=== PATIENT | male | born 1965 | race Caucasian/White ===

== ENCOUNTER 2020-11-16 22:31 | Inpatient (IN) | payer OTHER ==
[2020-11-16] MEDS ORDERED: SODIUM CHLORIDE 1,000 ML ONE (22:53)
[2020-11-16] MEDS ORDERED: METOCLOPRAMIDE HCL INJECTION 10 MG/2 ML VIAL IVPUSH ONE (22:53)
[2020-11-16] MEDS ORDERED: ONDANSETRON 4 MG/2 ML VIAL IVPB ONE (22:53)
[2020-11-16 22:56] VITALS: BMI 26.9
[2020-11-16 23:26] LABS: BASO % 0.3 % (0-2.0); EOS % 0.1 % (0-4.5); HEMATOCRIT 27.5 % (35.4-49); HEMOGLOBIN 9.6 GM/dl (11.7-16.9); LYMPH % 5.7 % (8-40); MCH 30.2 pg (25.7-33.7); MCHC 34.8 g/dl (32.0-35.9); MONO % 4.9 % (3.8-10.2); PLATELET COUNT 413 10^3/uL (134-434); RBC 3.17 M/mm3 (4.00-5.60); WHITE BLOOD COUNT 14.8 K/mm3 (4.0-10.8)
[2020-11-16] MEDS ORDERED: SODIUM CHLORIDE 1,000 ML IV ONE (23:33)
[2020-11-16 23:38] LABS: ALBUMIN 3.2 g/dl (3.4-5.0); BILIRUBIN,TOTAL 0.5 mg/dl (0.2-1); CALCIUM 8.2 mg/dl (8.5-10); CREATININE 1.3 mg/dl (0.55-1.3); TOT PROT 5.9 g/dl (6.4-8.2)
[2020-11-16] MEDS ORDERED: ONDANSETRON 4 MG/2 ML VIAL ONE (23:44)
[2020-11-16] MEDS ORDERED: METOCLOPRAMIDE HCL INJECTION 10 MG/2 ML VIAL ONE (23:44)
[2020-11-17] MEDS ORDERED: PANTOPRAZOLE SODIUM 40 MG VIAL IVPUSH ONE (00:54)
[2020-11-17] MEDS ORDERED: PANTOPRAZOLE SODIUM 40 MG VIAL ONE (00:57)
[2020-11-17] MEDS: SODIUM CHLORIDE 1,000 ML IV SCH ×3 (06:30→22:30)
[2020-11-17 08:10] LABS: BASO % 0.1 % (0-2.0); EOS % 0.2 % (0-4.5); HEMATOCRIT 22.7 % (35.4-49); HEMOGLOBIN 7.7 GM/dl (11.7-16.9); LYMPH % 8.7 % (8-40); MCH 29.6 pg (25.7-33.7); MCHC 33.9 g/dl (32.0-35.9); MEAN CELL VOLUME 87.1 fl (80-96); MEAN PLT VOLUME 7.1 fl (7.5-11.1); MONO % 7.6 % (3.8-10.2); NEUT % 83.4 % (42.8-82.8); PLATELET COUNT 284 10^3/uL (134-434); RBC 2.61 M/mm3 (4.00-5.60); RDW 12.8 % (11.9-15.9); WHITE BLOOD COUNT 12.1 K/mm3 (4.0-10.8)
[2020-11-17 08:38] LABS: ALBUMIN 2.7 g/dl (3.4-5.0); BILIRUBIN,TOTAL 0.4 mg/dl (0.2-1); CALCIUM 7.9 mg/dl (8.5-10); CREATININE 0.8 mg/dl (0.55-1.3)
[2020-11-17] MEDS ORDERED: LISINOPRIL 20 MG TABLET PO SCH (10:00)
[2020-11-17] MEDS ORDERED: amLODIPine BESYLATE 10 MG TABLET (FP) PO SCH (10:00)
[2020-11-17] MEDS ORDERED: BENZTROPINE MESYLATE 1 MG TABLET PO SCH (10:00)
[2020-11-17] MEDS ORDERED: PANTOPRAZOLE SODIUM 40 MG VIAL IVPUSH SCH ×2 (10:00→22:00)
[2020-11-17] MEDS ORDERED: PATIENT'S OWN MEDICATION (NON-FORMULARY) (Lisinopril/Hydrochlorothiazide [Lisinopril-Hctz PO SCH (10:00)
[2020-11-17] MEDS ORDERED: HYDROCHLOROTHIAZIDE 12.5 MG CAPSULE (FP) PO SCH (10:00)
[2020-11-17] MEDS ORDERED: PROPOFOL 20 ML ONE (10:12)
[2020-11-17] MEDS ORDERED: LIDOCAINE HCL/PF 2% SDV 5ML VIAL ONE (10:12)
[2020-11-17] MEDS ORDERED: BENZTROPINE MESYLATE 0.5 MG TABLET (FP) PO SCH (11:01)
[2020-11-17 14:11] LABS: HEMATOCRIT 22.4 % (35.4-49); HEMOGLOBIN 7.7 GM/dl (11.7-16.9); MCH 29.8 pg (25.7-33.7); MCHC 34.5 g/dl (32.0-35.9); MEAN CELL VOLUME 86.4 fl (80-96); MEAN PLT VOLUME 6.4 fl (7.5-11.1); PLATELET COUNT 298 10^3/uL (134-434); RBC 2.59 M/mm3 (4.00-5.60); RDW 13.3 % (11.9-15.9)
[2020-11-17 14:30] LABS: CALCIUM 7.7 mg/dl (8.5-10); CREATININE 0.7 mg/dl (0.55-1.3)
[2020-11-17] MEDS ORDERED: DIVALPROEX SODIUM 500 MG TABLET E.C. PO SCH (22:00)
[2020-11-17] MEDS ORDERED: cloZAPine 25 MG TABLET PO SCH (22:00)
[2020-11-17] MEDS: DIVALPROEX SODIUM 500 MG TABLET E.C. PO SCH (22:30)
[2020-11-17] MEDS: PANTOPRAZOLE SODIUM 40 MG VIAL IVPUSH SCH (22:30)
[2020-11-17] MEDS: BENZTROPINE MESYLATE 1 MG TABLET PO SCH (22:30)
[2020-11-17] MEDS: cloZAPine 25 MG TABLET PO SCH (22:31)
[2020-11-18] MEDS ORDERED: PT OWN MED DRAWER 7, Y5N ONE ×4 (09:31→21:44)
[2020-11-18] MEDS ORDERED: ACETAMINOPHEN 500 MG TABLET (FP) PO PRN (09:33)
[2020-11-18] MEDS: amLODIPine BESYLATE 10 MG TABLET (FP) PO SCH (09:37)
[2020-11-18] MEDS: LISINOPRIL 20 MG TABLET PO SCH (09:37)
[2020-11-18] MEDS: HYDROCHLOROTHIAZIDE 12.5 MG CAPSULE (FP) PO SCH (09:37)
[2020-11-18] MEDS: PANTOPRAZOLE SODIUM 40 MG VIAL IVPUSH SCH (09:37)
[2020-11-18] MEDS: BENZTROPINE MESYLATE 1 MG TABLET PO SCH ×2 (09:38→22:03)
[2020-11-18] MEDS ORDERED: ACETAMINOPHEN 1000 MG/100 ML VIAL (NON FORMULARY) IVPB PRN (09:41)
[2020-11-18 09:50] LABS: BASO % 0.6 % (0-2.0); EOS % 0.7 % (0-4.5); HEMATOCRIT 26.5 % (35.4-49); HEMOGLOBIN 9.4 GM/dL (11.7-16.9); LYMPH % 14.3 % (8-40); MCH 29.7 pg (25.7-33.7); MCHC 35.5 g/dl (32.0-35.9); MEAN CELL VOLUME 83.8 fl (80-96); MEAN PLT VOLUME 6.5 fl (7.5-11.1); MONO % 8.4 % (3.8-10.2); PLATELET COUNT 291 10^3/uL (134-434); RBC 3.16 M/mm3 (4.00-5.60); RDW 14.2 % (11.9-15.9); WHITE BLOOD COUNT 7.4 K/mm3 (4.0-10.0)
[2020-11-18 09:54] LABS: INR 1.12 (0.83-1.09); PROTHROMBIN TIME (PATIENT) 13.5 SEC (9.7-13.0)
[2020-11-18 09:56] LABS: ACTIVATED PTT 26.4 SECONDS (25.2-36.5)
[2020-11-18] MEDS ORDERED: MAG HYDROX/AL HYDROX/SIMETH 30 ML UNIT-DOSE CUP PO PRN (16:07)
[2020-11-18] MEDS ORDERED: fluPHENAZine DECANOATE 125 MG/5ML VIAL IM ONE (16:30)
[2020-11-18] MEDS: SODIUM CHLORIDE 1,000 ML IV SCH (19:04)
[2020-11-18] MEDS: PANTOPRAZOLE SODIUM 80 MG in SODIUM CHLORIDE 100 ML IVPB SCH (20:23)
[2020-11-18] MEDS: DIVALPROEX SODIUM 500 MG TABLET E.C. PO SCH (22:03)
[2020-11-18] MEDS: cloZAPine 25 MG TABLET PO SCH (22:03)
[2020-11-19] MEDS ORDERED: PT OWN MED DRAWER 7, Y5N ONE ×4 (04:31→20:16)
[2020-11-19] MEDS: PANTOPRAZOLE SODIUM 80 MG in SODIUM CHLORIDE 100 ML IVPB SCH ×3 (04:32→21:28)
[2020-11-19] MEDS: LISINOPRIL 20 MG TABLET PO SCH (09:30)
[2020-11-19] MEDS: amLODIPine BESYLATE 10 MG TABLET (FP) PO SCH (09:30)
[2020-11-19] MEDS: HYDROCHLOROTHIAZIDE 12.5 MG CAPSULE (FP) PO SCH (09:30)
[2020-11-19] MEDS: BENZTROPINE MESYLATE 1 MG TABLET PO SCH ×2 (09:30→21:43)
[2020-11-19 09:32] LABS: BASO % 0.6 % (0-2.0); EOS % 1.5 % (0-4.5); HEMOGLOBIN 9.6 GM/dL (11.7-16.9); LYMPH % 17.2 % (8-40); MCH 30.2 pg (25.7-33.7); MCHC 35.7 g/dl (32.0-35.9); MEAN CELL VOLUME 84.7 fl (80-96); MEAN PLT VOLUME 6.4 fl (7.5-11.1); MONO % 10.4 % (3.8-10.2); NEUT % 70.3 % (42.8-82.8); PLATELET COUNT 326 10^3/uL (134-434); RBC 3.18 M/mm3 (4.00-5.60); RDW 14.2 % (11.9-15.9); WHITE BLOOD COUNT 6.1 K/mm3 (4.0-10.0)
[2020-11-19 10:02] LABS: CALCIUM 8.2 mg/dL (8.5-10.1)
[2020-11-19 10:06] LABS: CREATININE 0.9 mg/dL (0.55-1.3)
[2020-11-19 10:22] LABS: BLOOD UREA NITROGEN 10.6 mg/dL (7-18)
[2020-11-19] MEDS ORDERED: PANTOPRAZOLE SODIUM 40 MG VIAL IVPUSH SCH (12:45)
[2020-11-19] MEDS: NICOTINE POLACRILEX 4 MG GUM BUC PRN (16:45)
[2020-11-19 17:44] LABS: HEMATOCRIT 27.4 % (35.4-49); HEMOGLOBIN 9.7 GM/dL (11.7-16.9); MCH 29.7 pg (25.7-33.7); MCHC 35.3 g/dl (32.0-35.9); MEAN PLT VOLUME 6.6 fl (7.5-11.1); PLATELET COUNT 353 10^3/uL (134-434); RBC 3.26 M/mm3 (4.00-5.60); RDW 14.3 % (11.9-15.9); WHITE BLOOD COUNT 7.5 K/mm3 (4.0-10.0)
[2020-11-19] MEDS: SODIUM CHLORIDE 1,000 ML IV SCH (19:23)
[2020-11-19] MEDS: DIVALPROEX SODIUM 500 MG TABLET E.C. PO SCH (21:43)
[2020-11-19] MEDS: cloZAPine 25 MG TABLET PO SCH (21:45)
[2020-11-20 08:41] LABS: BASO % 0.5 % (0-2.0); EOS % 2.6 % (0-4.5); HEMATOCRIT 28.3 % (35.4-49); LYMPH % 17.4 % (8-40); MCH 30.1 pg (25.7-33.7); MCHC 35.3 g/dl (32.0-35.9); MEAN CELL VOLUME 85.2 fl (80-96); MEAN PLT VOLUME 6.7 fl (7.5-11.1); MONO % 11.6 % (3.8-10.2); NEUT % 67.9 % (42.8-82.8); PLATELET COUNT 345 10^3/uL (134-434); RBC 3.32 M/mm3 (4.00-5.60)
[2020-11-20 09:15] LABS: CALCIUM 7.9 mg/dL (8.5-10.1)
[2020-11-20 09:16] LABS: MAGNESIUM 1.8 mg/dL (1.8-2.4)
[2020-11-20] MEDS ORDERED: PT OWN MED DRAWER 7, Y5N ONE (09:17)
[2020-11-20 09:19] LABS: BILIRUBIN,TOTAL 0.4 mg/dL (0.2-1); CREATININE 0.8 mg/dL (0.55-1.3); PHOSPHOROUS 3.4 mg/dL (2.5-4.9); TOT PROT 5.9 g/dl (6.4-8.2)
[2020-11-20] MEDS: HYDROCHLOROTHIAZIDE 12.5 MG CAPSULE (FP) PO SCH (09:22)
[2020-11-20] MEDS: NICOTINE POLACRILEX 4 MG GUM BUC PRN (09:22)
[2020-11-20] MEDS: LISINOPRIL 20 MG TABLET PO SCH (09:22)
[2020-11-20] MEDS: amLODIPine BESYLATE 10 MG TABLET (FP) PO SCH (09:22)
[2020-11-20] MEDS: BENZTROPINE MESYLATE 1 MG TABLET PO SCH ×2 (09:23→21:30)
[2020-11-20] MEDS: PANTOPRAZOLE SODIUM 80 MG in SODIUM CHLORIDE 100 ML IVPB SCH (09:26)
[2020-11-20 09:35] LABS: BLOOD UREA NITROGEN 9.7 mg/dL (7-18)
[2020-11-20] MEDS: PANTOPRAZOLE SODIUM 40 MG VIAL IVPUSH SCH ×2 (14:02→21:30)
[2020-11-20] MEDS: SODIUM CHLORIDE 1,000 ML IV SCH (21:26)
[2020-11-20] MEDS: DIVALPROEX SODIUM 500 MG TABLET E.C. PO SCH (21:30)
[2020-11-20] MEDS: cloZAPine 25 MG TABLET PO SCH (21:30)
[2020-11-21] MEDS ORDERED: PT OWN MED DRAWER 7, Y5N ONE ×2 (09:16→20:24)
[2020-11-21] MEDS: amLODIPine BESYLATE 10 MG TABLET (FP) PO SCH (09:22)
[2020-11-21] MEDS: HYDROCHLOROTHIAZIDE 12.5 MG CAPSULE (FP) PO SCH (09:22)
[2020-11-21] MEDS: LISINOPRIL 20 MG TABLET PO SCH (09:22)
[2020-11-21] MEDS: BENZTROPINE MESYLATE 1 MG TABLET PO SCH ×2 (09:23→21:07)
[2020-11-21] MEDS: PANTOPRAZOLE SODIUM 40 MG VIAL IVPUSH SCH (09:23)
[2020-11-21 09:32] LABS: BASO % 0.4 % (0-2.0); EOS % 2.6 % (0-4.5); HEMATOCRIT 29.1 % (35.4-49); HEMOGLOBIN 10.2 GM/dL (11.7-16.9); LYMPH % 13.9 % (8-40); MCH 29.7 pg (25.7-33.7); MEAN CELL VOLUME 84.7 fl (80-96); MEAN PLT VOLUME 6.7 fl (7.5-11.1); MONO % 12.5 % (3.8-10.2); NEUT % 70.6 % (42.8-82.8); PLATELET COUNT 392 10^3/uL (134-434); RBC 3.44 M/mm3 (4.00-5.60); RDW 14.2 % (11.9-15.9); WHITE BLOOD COUNT 8.2 K/mm3 (4.0-10.0)
[2020-11-21 10:18] LABS: CALCIUM 8.4 mg/dL (8.5-10.1)
[2020-11-21 10:20] LABS: ALBUMIN 3.2 g/dl (3.4-5.0); BLOOD UREA NITROGEN 10.9 mg/dL (7-18)
[2020-11-21 10:21] LABS: MAGNESIUM 1.8 mg/dL (1.8-2.4)
[2020-11-21 10:22] LABS: TOT PROT 6.2 g/dl (6.4-8.2)
[2020-11-21 10:23] LABS: CREATININE 0.9 mg/dL (0.55-1.3)
[2020-11-21 10:33] LABS: BILIRUBIN,TOTAL 0.5 mg/dL (0.2-1)
[2020-11-21] MEDS: PANTOPRAZOLE 40 MG TABLET PO SCH (11:41)
[2020-11-21] MEDS: DIVALPROEX SODIUM 500 MG TABLET E.C. PO SCH (21:07)
[2020-11-21] MEDS: cloZAPine 25 MG TABLET PO SCH (21:07)
[2020-11-22 08:57] LABS: BASO % 0.3 % (0-2.0); EOS % 1.3 % (0-4.5); HEMOGLOBIN 10.2 GM/dL (11.7-16.9); LYMPH % 8.5 % (8-40); MCHC 35.4 g/dl (32.0-35.9); MEAN CELL VOLUME 84.7 fl (80-96); MEAN PLT VOLUME 6.5 fl (7.5-11.1); NEUT % 75.9 % (42.8-82.8); PLATELET COUNT 419 10^3/uL (134-434); RBC 3.42 M/mm3 (4.00-5.60); RDW 14.3 % (11.9-15.9); WHITE BLOOD COUNT 10.8 K/mm3 (4.0-10.0)
[2020-11-22 09:17] LABS: CALCIUM 8.8 mg/dL (8.5-10.1)
[2020-11-22 09:19] LABS: BLOOD UREA NITROGEN 9.2 mg/dL (7-18); MAGNESIUM 1.8 mg/dL (1.8-2.4)
[2020-11-22 09:21] LABS: BILIRUBIN,TOTAL 0.2 mg/dL (0.2-1); CREATININE 0.9 mg/dL (0.55-1.3); PHOSPHOROUS 3.4 mg/dL (2.5-4.9)
[2020-11-22 09:23] LABS: TOT PROT 6.2 g/dl (6.4-8.2)
[2020-11-22] MEDS ORDERED: PT OWN MED DRAWER 7, Y5N ONE ×2 (09:28→21:24)
[2020-11-22] MEDS: BENZTROPINE MESYLATE 1 MG TABLET PO SCH ×2 (09:30→21:27)
[2020-11-22] MEDS: PANTOPRAZOLE 40 MG TABLET PO SCH (09:31)
[2020-11-22] MEDS: HYDROCHLOROTHIAZIDE 12.5 MG CAPSULE (FP) PO SCH (09:31)
[2020-11-22] MEDS: amLODIPine BESYLATE 10 MG TABLET (FP) PO SCH (09:32)
[2020-11-22] MEDS: LISINOPRIL 20 MG TABLET PO SCH (09:32)
[2020-11-22] MEDS ORDERED: LISINOPRIL 20 MG TABLET PO SCH (10:00)
[2020-11-22] MEDS ORDERED: LISINOPRIL 20 MG TABLET PO ONE (10:15)
[2020-11-22] MEDS: SODIUM CHLORIDE 1,000 ML IV SCH (13:06)
[2020-11-22] MEDS: cloZAPine 25 MG TABLET PO SCH (21:28)
[2020-11-22] MEDS: DIVALPROEX SODIUM 500 MG TABLET E.C. PO SCH (21:28)
[2020-11-23] MEDS ORDERED: PT OWN MED DRAWER 7, Y5N ONE (02:31)
[2020-11-23] MEDS: SODIUM CHLORIDE 1,000 ML IV SCH ×2 (02:45→19:42)
[2020-11-23] MEDS: BENZTROPINE MESYLATE 1 MG TABLET PO SCH ×2 (09:58→21:34)
[2020-11-23] MEDS: PANTOPRAZOLE 40 MG TABLET PO SCH (09:58)
[2020-11-23] MEDS: LISINOPRIL 20 MG TABLET PO SCH (09:58)
[2020-11-23] MEDS: amLODIPine BESYLATE 10 MG TABLET (FP) PO SCH (09:58)
[2020-11-23] MEDS: cloZAPine 25 MG TABLET PO SCH (21:34)
[2020-11-23] MEDS: DIVALPROEX SODIUM 500 MG TABLET E.C. PO SCH (21:34)
[2020-11-24] MEDS ORDERED: PT OWN MED DRAWER 7, Y5N ONE (10:08)
[2020-11-24] MEDS: LISINOPRIL 20 MG TABLET PO SCH (10:09)
[2020-11-24] MEDS: amLODIPine BESYLATE 10 MG TABLET (FP) PO SCH (10:09)
[2020-11-24] MEDS: BENZTROPINE MESYLATE 1 MG TABLET PO SCH (10:09)
[2020-11-24] MEDS: PANTOPRAZOLE 40 MG TABLET PO SCH (10:09)
[2020-11-24 14:51] VITALS: BP 102/58; PULSE 93; TEMP 98.6
== END 2020-11-24 18:15 | disposition home or self-care (01) | DRG 241 ==
LOC: FER 22:31 → FM/S 11-17 05:13 → J8W 11-17 17:09
PROVIDERS: ADMIT Internal Medicine; ATTEND Internal Medicine
PROC: 0DB68ZX Excision of Stomach, Via Natural or Artificial Opening Endoscopic, Diagnostic (ICD-10-PCS; 2020-11-17)
PROC: 30233N1 Transfusion of Nonautologous Red Blood Cells into Peripheral Vein, Percutaneous Approach (ICD-10-PCS; principal; 2020-11-17 10:16)
DX: K26.0 Acute duodenal ulcer with hemorrhage (principal); I10 Essential (primary) hypertension; F20.0 Paranoid schizophrenia; E87.1 Hypo-osmolality and hyponatremia; D62 Acute posthemorrhagic anemia; K20.90 Esophagitis, unspecified without bleeding; R11.2 Nausea with vomiting, unspecified; R00.0 Tachycardia, unspecified; M25.569 Pain in unspecified knee; T39.395A Adverse effect of other nonsteroidal anti-inflammatory drugs [NSAID], initial encounter
CPT/HCPCS: 36415; 36430; 71045-TC-FY; 80048; 80053; 81003; 82550; 82570; 83735; 83930; 83935; 84100; 84300; 84443; 84484; 85025; 85027; 85610; 85730; 86850; 86900; 86901; 86922; 88305-TC; 93005; 99285-25; C9803; J0131; P9058; U0003; U0005